=== PATIENT | female | born 1955 | race Caucasian/White ===

== ENCOUNTER 2023-10-03 05:55 | Day surgery (SDC) | payer MEDICARE, OTHER ==
[2023-10-02 10:35] LABS: BASOPHILS % (AUTO) 0.6 % (0-1); EOSINOPHILS # (AUTO) 0.1 X10'3 (0-0.9); HEMATOCRIT 39.4 % (35.0-45.0); HEMOGLOBIN 13.3 g/dl (12.0-16.0); LYMPHOCYTES # (AUTO) 1.4 X10'3 (1.1-4.8); LYMPHOCYTES % (AUTO) 22.7 % (21-51); MEAN CORPUSCULAR HEMOGLOBIN 35.8 PG (27.0-31.0); MEAN CORPUSCULAR HGB CONC 33.6 g/dL (33.0-36.5); MEAN CORPUSCULAR VOLUME 106.4 FL (78-98); MONOCYTES # (AUTO) 0.4 X10'3 (0-0.9); MONOCYTES % (AUTO) 6.4 % (2-12); NEUTROPHILS # (AUTO) 4.3 X10'3 (1.8-7.7); NEUTROPHILS % (AUTO) 68.3 % (42-75); PLATELET COUNT 280 X10'3 (140-440); RED CELL DISTRIBUTION WIDTH 14.7 % (11.5-14.5); WHITE BLOOD COUNT 6.3 X10'3 (4.5-11.0)
[2023-10-02 10:46] LABS: ALBUMIN 4.2 G/DL (3.4-5.0); ANION GAP 9 (8-16); APTT 25 SECONDS (22-32); BLOOD UREA NITROGEN 23 MG/DL (7-18); BUN/CREATININE RATIO 24.5 (10.0-20.0); CALCIUM 9.7 MG/DL (8.5-10.1); CHLORIDE 102 MMOL/L (99-107); CREATININE 0.94 MG/DL (0.40-0.90); GLUCOSE 121 MG/DL (70-104); POTASSIUM 4.7 MMOL/L (3.5-5.1); PROTHROMBIN TIME 10.5 SECONDS (9.0-12.0); SODIUM 137 MMOL/L (135-145); TOTAL CARBON DIOXIDE 26.2 MMOL/L (24-32); eGFR 59 ML/MIN
[2023-10-03] VITALS (13 sets, daily range): BP systolic 88–127; BP diastolic 28–78; PULSE 80–92; RESP 11–23; TEMP 98; O2SAT 94–97
[~2023-10-03] VITALS: Ht 167.6 cm; Wt 80.4 kg
[2023-10-03] MEDS ORDERED: ASPI-1265 PO ×2 (06:29→10:04)
[2023-10-03] MEDS ORDERED: ROSU5TAB43 PO (06:29)
[2023-10-03] MEDS ORDERED: HYDR500C18 PO (06:29)
[2023-10-03] MEDS ORDERED: LOSA-415 PO (06:29)
[2023-10-03] MEDS ORDERED: CYAN-116 PO (06:29)
[2023-10-03] MEDS ORDERED: METF-900 PO (06:29)
[2023-10-03] MEDS ORDERED: INSU100V41 SQ (06:29)
[2023-10-03] MEDS ORDERED: CARV3.12 PO (06:29)
[2023-10-03] MEDS ORDERED: SPIR25TA5 PO (06:29)
[2023-10-03] MEDS: normal saline 1,000 ML IV SCH (07:17)
[2023-10-03] MEDS: LORazepam 0.5 MG tablet PO PRN (07:17)
[2023-10-03] MEDS: diphenhydrAMINE 25mg capsule PO PRN (07:18)
[2023-10-03] MEDS ORDERED: LIDOcaine 1% (10mg/ml) 2ml vial ONE (07:33)
[2023-10-03] MEDS ORDERED: midazolam 1 mg/ML 2ml injection ONE (07:33)
[2023-10-03] MEDS ORDERED: verapamil 2.5 mg/ml inj IV ONE (07:33)
[2023-10-03] MEDS ORDERED: fentaNYL/PF 50MCG/1 ML 2ML syringe ONE (07:33)
[2023-10-03] MEDS ORDERED: heparin 1,000unit/ml 10ml vial 10 ML ONE ×2 (07:34→09:24)
[2023-10-03] MEDS ORDERED: iohexol 350MG/ML 100ml bottle IV ONE ×2 (07:34→08:43)
[2023-10-03] MEDS ORDERED: nitroGLYCERIN 500mcg/5mL D5W 5 ML IV ONE ×3 (07:34→09:14)
[2023-10-03] MEDS ORDERED: iohexol 350 MG/ML 50ML vial IV ONE (07:34)
[2023-10-03 08:52] LABS: ISTAT HGB ART 11.9 g/dl (12.0-16.0); ISTAT Hct ART 35 %PCV (35-45); ISTAT O2 SATURATION ARTERIAL 94 % (95-98); ISTAT SOURCE ART
[2023-10-03] MEDS ORDERED: heparin 25,000 UNIT/250ml bag 250 ML IV ONE (08:53)
[2023-10-03] MEDS ORDERED: clopidogrel 300mg tablet ONE (09:17)
[2023-10-03 09:21] LABS: ISTAT HGB MIX 11.9 g/dl (12.0-16.0); ISTAT Hct MIX 35 %PCV (35-45); ISTAT O2 SATURATION MIX VENOUS 70 % (60-80); ISTAT SOURCE VEN
[2023-10-03] MEDS ORDERED: CLOP75TA33 PO (10:04)
[2023-10-03] MEDS ORDERED: ROSU40TA PO (10:04)
== END 2023-10-03 15:45 | disposition home or self-care (01) ==
LOC: SSTAY O 05:55
PROVIDERS: ATTEND Internal Medicine Cardiovascular Disease
DX: I42.0 Dilated cardiomyopathy (principal); I45.10 Unspecified right bundle-branch block; I25.10 Atherosclerotic heart disease of native coronary artery without angina pectoris; E11.42 Type 2 diabetes mellitus with diabetic polyneuropathy; E66.9 Obesity, unspecified; Z79.82 Long term (current) use of aspirin; Z79.84 Long term (current) use of oral hypoglycemic drugs; Z79.899 Other long term (current) drug therapy; Z98.891 History of uterine scar from previous surgery; Z98.890 Other specified postprocedural states; Z68.28 Body mass index [BMI] 28.0-28.9, adult; Z82.3 Family history of stroke; Z80.9 Family history of malignant neoplasm, unspecified
CPT/HCPCS: 36415; 76937; 80048; 82803; 82948; 85014; 85025; 85347; 85610; 85730; 93005; 93460; 99152; 99153; A6258; A6402; C1725; C1751; C1769; C1874; C1894; C9600; J1644; J2001; J2250; J3010; J3490; J7030; Q0163; Q9967; Z7610